=== PATIENT | female | born 1990 | race Caucasian/White ===

== ENCOUNTER 2016-11-12 16:05 | Emergency (ER) | payer OTHER ==
[~2016-11-12] VITALS: Ht 165.1 cm; Wt 76.1 kg
[~2016-11-12 16:05] MED LIST: LEVO1TAB41 PO; SERT100T PO
[2016-11-12 16:12] VITALS: BP 147/82
[2016-11-12] MEDS ORDERED: ONDANSETRON 2MG/ML, 2ML IVPush ONE (16:30)
[2016-11-12] MEDS ORDERED: SODIUM CHLORIDE 0.9% 1,000ML IV ONE (16:30)
[2016-11-12] MEDS ORDERED: SODIUM CHLORIDE FLUSH 10ML SYR IVF ONE (16:30)
[2016-11-12 16:48] LABS: HEMATOCRIT 39.6 % (34.6-47.8); HEMOGLOBIN 13.7 g/dL (11.7-16.4); WHITE BLOOD COUNT 5.4 x10^3/uL (3.4-10)
[2016-11-12 16:59] LABS: BLOOD UREA NITROGEN 6 mg/dL (7-18)
[2016-11-12 17:03] LABS: ASPARTATE AMINO TRANSFERASE 14 U/L (15-37)
[2016-11-12] MEDS ORDERED: ONDANSETRON 2MG/ML, 2ML ONE (18:02)
== END 2016-11-12 19:25 | disposition home or self-care (01) ==
LOC: ED 19:15
DX: R10.31 Right lower quadrant pain (principal)
CPT/HCPCS: 36415; 74176; 80053; 81003; 83605; 84703; 85025; 99285

== ENCOUNTER 2017-02-09 21:25 | Emergency (ER) | payer OTHER ==
[~2017-02-09] VITALS: Ht 165.1 cm; Wt 70.0 kg
[2017-02-09 21:27] VITALS: BP 133/88
[2017-02-09] MEDS ORDERED: HYDROcodone/APAP 5/325 TABLET PO ONE (22:00)
[2017-02-09] MEDS ORDERED: HYDROcodone/APAP 5/325 TABLET ONE (22:03)
== END 2017-02-09 22:45 | disposition home or self-care (01) ==
LOC: ED 21:52
DX: S70.12XA Contusion of left thigh, initial encounter (principal); W21.07XA Struck by softball, initial encounter; Y93.64 Activity, baseball; Y92.328 Other athletic field as the place of occurrence of the external cause; Y99.8 Other external cause status
CPT/HCPCS: 99284